=== PATIENT | female | born 1985 | race Caucasian/White ===

== ENCOUNTER 2016-10-16 17:04 | Emergency (ER) | payer OTHER | END 2016-10-16 17:20 | disposition left against medical advice (07) | LOC: UCCORT 17:04 | DX: N39.9 Disorder of urinary system, unspecified (principal); Z53.21 Procedure and treatment not carried out due to patient leaving prior to being seen by health care provider ==

== ENCOUNTER 2016-10-16 20:41 | Emergency (ER) | payer OTHER ==
[2016-10-16 21:02] VITALS: BP 121/78
--- NOTE | 2016-10-16 21:04 | UC ---
Complaint Female HPI - HPI Summary HPI Summary: 31 y/o female presents to the urgent care c/o white vaginal discharge for the past 3 days. Pt reports a fishy order and she thinks is BV since she had it before. Pt denies vaginal bleeding, pelvic pain, back pain or urinary symptoms, fever, SOB, chest pain. LMP 10/08/2016 w/ regular menstrual cycles. No Hx of STDs. She also reports mild LF knee pain with walking and flexing the knee. She states she fell on 10/04/2016 and twisted her knee. Pain has been mild, specially on the lateral side of LF knee, but when she does exercise pain 7/10 and occasional feels instability. Patient denies swelling or redness around knee. No other complains. - History Of Current Complaint Chief Complaint: UCLowerExtremity Stated Complaint: URINARY,LEFT KNEE COMPLAINT Time Seen by Provider: 10/16/16 21:02 Hx Obtained From: Patient Hx Last Menstrual Period: 10/08/2016 ?: No Onset/Duration: Sudden Onset, Lasting Days, Still Present Timing: Constant Severity Initially: Mild Severity Currently: Moderate Pain Intensity: 7 - Left knee with twisting Pain Scale Used: 0-10 Numeric Aggravating Factor(s): Movement Associated Signs And Symptoms: Positive: Negative. Negative: Fever, Back Pain, Vaginal Bleeding/Discharge, Nausea, Vomiting(# Of Episodes =), Genital Swelling - Risk Factors Ectopic Risk Factor: Negative - Allergies/Home Medications Allergies/Adverse Reactions: Allergies Allergy/AdvReac Type Severity Reaction Status Date / Time No Known Allergies Allergy Verified 10/16/16 21:02 PMH/Surg Hx/FS Hx/Imm Hx Previously Healthy: Yes Psychological History: Anxiety - Surgical History Surgical History: Yes Surgery Procedure, Year, and Place: benign hair follicle tumor - Family History Known Family History: Positive: Cardiac Disease - Social History Occupation: Employed Full-time Lives: With Family Alcohol Use: Rare Substance Use Type: None Smoking Status (MU): Never Smoked Tobacco Amount Used/How Often: occasional Review of Systems Constitutional: Negative Skin: Negative Eyes: Negative ENT: Negative Respiratory: Negative Cardiovascular: Negative Gastrointestinal: Negative Genitourinary: Other - white vaginal discharge Motor: Negative Neurovascular: Negative Musculoskeletal: Other: - LF knee pain Neurological: Negative Psychological: Negative All Other Systems Reviewed And Are Negative: Yes Physical Exam Triage Information Reviewed: Yes Appearance: Well-Appearing, No Pain Distress, Well-Nourished, Thin Vital Signs: Initial Vital Signs Temp 99.4 F 10/16/16 20:45 Pulse 96 10/16/16 20:45 Resp 20 10/16/16 20:45 BP 121/78 10/16/16 20:45 Vital Signs Reviewed: Yes Eye Exam: Normal Eyes: Positive: Conjunctiva Clear - PERRLA, EOMI, fundi grossly normal ENT Exam: Normal ENT: Positive: Normal ENT inspection, Hearing grossly normal, Pharynx normal, TMs normal Dental Exam: Normal Neck exam: Normal Neck: Positive: Supple, Nontender, No Lymphadenopathy Respiratory Exam: Normal Respiratory: Positive: Chest non-tender, Lungs clear, Normal breath sounds Cardiovascular Exam: Normal Cardiovascular: Positive: RRR, No Murmur, Pulses Normal Abdominal Exam: Normal Abdomen Description: Positive: Other: - Pelvic: I was assisted by Nurse Dunia. External genitalia within normal limits. There is no lesions there is no masses noted. Speculum exam: The vaginal garay are within normal limits w/ white clear vaginal discharge, with fishy odor, no the lesions or rashes. The cervix is closed with no lesions or masses. There is no CMT's, and no adnexal masses. Sample sent to lab for G/C and affirm. Rectal: No lesions, no hemorrhoids, Bowel Sounds: Positive: Present Musculoskeletal Exam: Normal Musculoskeletal: Positive: Strength Intact, Other: - Lateral side of Left Knee with tenderness on deep palpation, no swelling or erythema observed. Varus and valgus test: positive. Audrey's test negative, drawer test negative. Neurological Exam: Normal Psychological Exam: Normal Skin Exam: Normal Complaint Female Dx - Course Course Of Treatment: 31 y/o female presents to the urgent care c/o white vaginal discharge for the past 3 days. Pt reports a fishy order and she thinks is BV since she had it before. Pt denies vaginal bleeding, pelvic pain, back pain or urinary symptoms, fever, SOB, chest pain. LMP 10/08/2016 w/ regular menstrual cycles. No Hx of STDs. She also report mild LF knee pain with walking and flexing the knee. She states she fell on 10/04/2016 and twisted her knee. Pain has been mild, specially on the lateral side of LF knee, but when she does exercise pain 7/10 and occasional feels instability. Patient denies swelling or redness around knee. Hx obtained. PE abnormal findings: 1-Pelvic: I was assisted by Nurse Dunia. External genitalia within normal limits. There is no lesions there is no masses noted. Speculum exam: The vaginal garay are within normal limits w/ white clear vaginal discharge, with fishy odor, no the lesions or rashes. The cervix is closed with no lesions or masses. There is no CMT's, and no adnexal masses. Sample sent to lab for G/C and affirm. Rectal: No lesions, no hemorrhoids. Mos likely Bacterial Vaginosis. Pt RX Metronidazole 500mg PO x 7 days ad advised to avoid alcohol intake while taking antibiotic and if anything abnormal in the lab results, she will receive a call from us hussain further treatment. Pt understood and agreed. 2-Musculoskeletal: Positive: Strength Intact, Other: - Lateral side of Left Knee with tenderness on deep palpation, no swelling or erythema observed. Varus test: positive. Audrey's test negative, drawer test negative. FROM of LF knee. Pt ambulates w/ o any limitation. PT's left knee immobilized with keily bandage and Rx ibuprofen prn to alleviate symptoms, advised RICE, avoind standing for long periods and exercise. Advised if symptoms persists to f/u with her PCP for further evaluation and treatment. Pt understood and agreed - Differential Dx/Diagnosis Differential Diagnosis/HQI/PQRI: Cervicitis, Pelvic Inflammatory Disease, Sexually Transmitted Disease, Other - vaginosis Provider Diagnoses: 1- Bacterial Vaginosis. 2-Left knee pain Discharge - Discharge Plan Condition: Stable Disposition: HOME Prescriptions: Ibuprofen TAB* [Motrin TAB* 800 MG] 800 mg PO Q6H #30 tab Metronidazole [Flagyl 500 MG TAB] 500 mg PO BID #13 tab Patient Education Materials: Bacterial Vaginosis (ED), Knee Pain (ED) Referrals: Yamel Medina MD [Primary Care Provider] - 1 Week Additional Instructions: Please take medications as instructed and finish the full course of treatment to avoid recurrent infection. Avoid drinking alcohol while taking medication. Specimen sent to lab if anything else abnormal you will receive a call from us for further treatment. If you do not improve or if symptoms worsen after the course of antibiotics, you should either follow up with your PCP or return to the urgent care for further evaluation and treatment. For your knee pain Take ibuprofen prn after meals to alleviate symptoms and keep knee immobilized, place ice and keep leg elevated at night time. if symptoms do not improve f/u with your PCP for further evaluation and treatment.
[2016-10-16] MEDS ORDERED: metroNIDAZOLE TAB* 250 MG PO ONE (21:31)
== END 2016-10-16 21:49 | disposition home or self-care (01) ==
LOC: UCCORT 20:41
DX: N76.0 Acute vaginitis (principal); M25.562 Pain in left knee; F41.9 Anxiety disorder, unspecified
CPT/HCPCS: 87480; 87491; 87510; 87591; 87661; 99213; A9270-GY; G0463

== ENCOUNTER 2018-04-04 12:05 | Emergency (ER) | payer OTHER ==
[2018-04-04 12:41] VITALS: BP 120/67
--- NOTE | 2018-04-04 12:57 | UC ---
Complaint Female HPI - HPI Summary HPI Summary: 32-year-old female presents with 3 day history of dysuria, frequency, sensation of inability to empty her bladder, and suprapubic pressure. States today she did notice some blood in the urine. Denies fever, chills, back or flank pain, abdominal pain, nausea, vomiting, vaginal discharge, dyspareunia, or abnormal vaginal bleeding. Last menstrual period was approximately one month ago. States she is sexually active and does not use any form of control. - History Of Current Complaint Chief Complaint: UCGU Stated Complaint: URINARY COMPLAINT Time Seen by Provider: 04/04/18 12:38 Hx Obtained From: Patient Hx Last Menstrual Period: BEGINNING OF MARCH 2018 Pain Intensity: 10 - Allergies/Home Medications Allergies/Adverse Reactions: Allergies Allergy/AdvReac Type Severity Reaction Status Date / Time No Known Allergies Allergy Verified 04/04/18 12:36 Home Medications: Home Medications Methylphenidate ER TAB* [Concerta ER TAB*] 1 tab DAILY 04/04/18 [History Confirmed 04/04/18] Methylphenidate TAB* [Ritalin TAB*] 1 tab DAILY 04/04/18 [History Confirmed 04/22] hydrOXYzine HCL TAB* [Atarax TAB 50 MG *] 1 tab BEDTIME PRN 04/04/18 [History Confirmed 04/04/18] PMH/Surg Hx/FS Hx/Imm Hx Previously Healthy: Yes Psychological History: Other - ADHD - Surgical History Surgical History: Yes Surgery Procedure, Year, and Place: benign hair follicle tumor - Family History Known Family History: Positive: Cardiac Disease - Social History Occupation: Employed Full-time Lives: Alone Alcohol Use: Rare Substance Use Type: None Smoking Status (MU): Never Smoked Tobacco Amount Used/How Often: occasional Review of Systems All Other Systems Reviewed And Are Negative: Yes Constitutional: Negative: Fever, Chills Respiratory: Positive: Negative Cardiovascular: Positive: Negative Gastrointestinal: Negative: Abdominal Pain, Vomiting, Diarrhea, Nausea Genitourinary: Positive: Dysuria, Hematuria, Frequency, Urgency. Negative: Vaginal/Penile Discharge, Abnormal Bleeding Musculoskeletal: Positive: Negative Is Patient Immunocompromised?: No Physical Exam - Summary Physical Exam Summary: GENERAL APPEARANCE: Well developed, well nourished, alert and cooperative, and appears to be in no acute distress. CARDIAC: Normal S1 and S2. No S3, S4 or murmurs. Rhythm is regular. There is no peripheral edema, cyanosis or pallor. Extremities are warm and well perfused. Capillary refill is less than 2 seconds. LUNGS: Clear to auscultation and percussion without rales, rhonchi, wheezing or diminished breath sounds. ABDOMEN: Positive bowel sounds. Soft, nondistended. Mild surpapubic tenderness. No guarding or rebound. No masses or hepatosplenomegally. No CVA tenderness. MUSKULOSKELETAL: ROM intact to all extremities. No joint erythema or tenderness. Normal muscular development. Normal gait. SKIN: Skin normal color, texture and turgor with no lesions or eruptions. Triage Information Reviewed: Yes Vital Signs: Initial Vital Signs Temp 97.1 F 04/04/18 12:38 Pulse 100 04/04/18 12:38 Resp 14 04/04/18 12:38 BP 120/67 04/04/18 12:38 Pulse Ox 100 04/04/18 12:38 Diagnostics - Laboratory Diagnostic Studies Completed/Ordered: [id number] urinalysis showed 3+ protein , trace ketones, 3+ blood, positive nitrites, 1+ bilirubin, and 3+ leukocyte esterase. Urine negative. Complaint Female Dx - Course Course Of Treatment: 32-year-old female presents with 3 day history of dysuria, frequency, sensation of inability to empty her bladder, and suprapubic pressure. States today she did notice some blood in the urine. Denies fever, chills, back or flank pain, abdominal pain, nausea, vomiting, vaginal discharge , dyspareunia, or abnormal vaginal bleeding. Last menstrual period was approximately one month ago. States she is sexually active and does not use any form of control. Afebrile. Vital signs stable. Exam is unremarkable except for some mild suprapubic tenderness. [id number] urinalysis showed 3+ protein, trace ketones, 3+ blood, positive nitrites, 1+ bilirubin, and 3+ leukocyte esterase. Urine negative. Urine culture is pending. Will treat for acute cystitis with Bactrim DS 1 tablet twice a day 5 days and will provide Pyridium 100 mg 3 times a day 2 days. She is to follow-up with her primary care provider if symptoms do not improve. Warning symptoms were reviewed with the patient she verbalizes understanding and agrees with plan of care. - Differential Dx/Diagnosis Differential Diagnosis/HQI/PQRI: , Renal Colic, Ureteral Stone, Urinary Tract Infection Provider Diagnosis: Acute cystitis with hematuria Discharge - Sign-Out/Discharge Documenting (check all that apply): Patient Departure All imaging exams completed and their final reports reviewed: No Studies - Discharge Plan Condition: Stable Disposition: HOME Prescriptions: Phenazopyridine TAB* [Pyridium 100 mg TAB*] 100 mg PO TID #6 tab Sulfamethox/Trimethoprim DS* [Bactrim DS 800/160 TAB*] 1 tab PO BID #10 tab Patient Education Materials: Urinary Tract Infection in Women (ED) Referrals: No Primary Care Phys,NOPCP [Primary Care Provider] - Additional Instructions: Your urine test in the clinic today is suggestive of a urinary tract infection. We will start you on an antibiotic to treat for the infection. We will also send a urine culture today to see what bacteria grow out and make sure the antibiotic you were prescribed is appropriate to treat the infection. It will take 48-72 hours to get these results. We will contact you if there is any change in your treatment plan. Start Bactrim DS 1 tab twice a day for 5 days.. Take Pyridium 1 tablet every 8 hours for next 2 days to help with the discomfort. This medication will turn your urine an orange color. Drink plenty of fluids. To help prevent urinary tract infections: 1) Be sure to wipe from front to back. 2) Urinate immediately after any sexual intercourse. 3) Avoid taking bubble baths. Follow up with your primary care provider in 5-7 days if symptoms persist. Seek immediate medical attention in the emergency room if you develop fever greater than 100.5 F, have severe abdominal pain, persistent vomiting, or any worsening of symptoms. - Billing Disposition and Condition Condition: STABLE Disposition: Home
== END 2018-04-04 13:16 | disposition home or self-care (01) ==
LOC: UCCORT 12:05
DX: N30.01 Acute cystitis with hematuria (principal); F90.9 Attention-deficit hyperactivity disorder, unspecified type
CPT/HCPCS: 81003; 84702; 87077; 87086; 87186; 99212; G0463